=== PATIENT | female | born 1985 | race Caucasian/White ===

== ENCOUNTER 2021-01-09 19:44 | Inpatient (IN) | payer SELFPAY ==
[2021-01-09] MEDS ORDERED: Ondansetron PF 4 MG/2 ML Vial IVP PRN (23:40)
[2021-01-09] MEDS ORDERED: Acetaminophen 325 MG TAB PO PRN (23:40)
[2021-01-10 00:38] LABS: Cardiac Risk 4.4 (Less than 4.5)
[2021-01-10 00:43] VITALS: BMI 29.7
[2021-01-10] MEDS: Sodium Chloride 0.9% 1,000 ML IV SCH ×2 (01:14→05:20)
[2021-01-10] MEDS: Morphine 4 MG/ML VIAL SLOW IVP PRN ×2 (01:15→05:15)
[2021-01-10 02:37] LABS: Bacteria/HPF None Seen HPF (None Seen); Bilirubin Negative (Negative); Blood, Urine Negative (Negative); Clarity Clear (Clear); Glucose, Urine (Dipstick) Normal (Negative); Ketone, Urine Negative (Negative); Leukocyte 25 Leu/uL (Negative); Nitrite Negative (Negative); Protein, Urine (Dipstick) 30 mg/dL (Neg-Trace); Squamous Epithelial 21-50 HPF (0-3); pH, Urine 6.5 (5.0-9.0)
[2021-01-10 02:53] LABS: Specific Gravity, Urine Greater than 1.060 (1.002-1.036)
[2021-01-10 02:54] LABS: Urine Culture Reflex No No
[2021-01-10 06:38] LABS: #Eosinphils 0.2 thou/uL (0.0-0.7); #Lymphocytes 2.6 thou/uL (1.20-3.40); #Monocytes 0.6 thou/uL (0.11-0.59); #Neutrophils 4.2 thou/uL (1.40-6.50); %Basophils 0.6 % (0.0-1.0); %Eosinophils 2.1 % (0.0-10.0); %Lymphocytes 34.4 % (21.0-51.0); %Monocytes 8.1 % (0.0-10.0); %Neutrophils 54.8 % (42.0-75.0); Hemoglobin 11.8 g/dL (12.0-16.0); Mean Corpuscular HGB CONC 33.2 g/dL (32.0-36.0); Mean Corpuscular Hemoglobin 31.2 pg (27.0-31.0); Mean Corpuscular Volume 93.9 fL (78.0-98.0); Mean Platelet Volume 8.1 fL (7.4-10.4); Platelet Count 280 thou/uL (130-400); RBC Distribution Width 11.4 % (11.5-14.5); White Blood Cell (WBC) Count 7.6 thou/uL (4.8-10.8)
[2021-01-10 08:30] LABS: ALT (SGPT) 281 U/L (8-55); AST (SGOT) 205 U/L (5-34); Albumin 3.3 g/dL (3.5-5.0); Alkaline Phosphatase 116 U/L (40-110); Bilirubin, Direct 0.3 mg/dL (0.1-0.3); Bilirubin, Total 0.6 mg/dL (0.2-1.2); Protein, Total 5.6 g/dL (6.0-8.3)
[2021-01-10 09:05] LABS: ALT (SGPT) 279 U/L (8-55); AST (SGOT) 206 U/L (5-34); Albumin 3.3 g/dL (3.5-5.0); Alkaline Phosphatase 114 U/L (40-110); Anion Gap 11 mmol/L (10-20); BUN (Urea Nitrogen) 7 mg/dL (7.0-18.7); Bilirubin, Total 0.6 mg/dL (0.2-1.2); Calc. Creatinine Clearance 144 mL/min (70-130); Calcium 8.1 mg/dL (7.8-10.44); Carbon Dioxide 22 mmol/L (22-29); Chloride 108 mmol/L (98-107); Globulin 2.3 g/dL (2.4-3.5); Glucose 80 mg/dL (70-105); Potassium 3.2 mmol/L (3.5-5.1); Protein, Total 5.6 g/dL (6.0-8.3); Sodium 138 mmol/L (136-145)
[2021-01-10] MEDS ORDERED: Ondansetron ODT 8 MG TAB SL PRN (09:37)
[2021-01-10] MEDS ORDERED: Ondansetron ORAL SOLN. 4 MG/5 ML UDCUP PO PRN (09:37)
[2021-01-10] MEDS ORDERED: Sodium Chloride 0.9% 1,000 ML IV SCH (09:43)
[2021-01-10] MEDS ORDERED: Ondansetron PF 4 MG/2 ML Vial SLOW IVP SCH (09:45)
[2021-01-10] MEDS ORDERED: Ketorolac Tromethamine 30 MG/ML VIAL IVP SCH (09:45)
[2021-01-10] MEDS ORDERED: Ibuprofen 600 MG TAB PO PRN (11:00)
[2021-01-10] MEDS ORDERED: traMADol HCl 50 MG TAB PO PRN (11:00)
[2021-01-10] MEDS ORDERED: Acetaminophen 500 MG TAB PO PRN (11:00)
[2021-01-10] MEDS ORDERED: Scopolamine 1.5 mg/72 hour Patch ONE (11:12)
[2021-01-10] MEDS ORDERED: Levofloxacin 500 mg/D5W 100 ml Premix Bag ONE (11:12)
[2021-01-10] MEDS ORDERED: Ketorolac Tromethamine 30 MG/ML VIAL ONE ×2 (11:12→12:16)
[2021-01-10] MEDS ORDERED: Ondansetron PF 4 MG/2 ML Vial ONE ×2 (11:12→12:16)
[2021-01-10] MEDS ORDERED: Lidocaine 1% w/Epinephrine 1:100K 20 ML VIAL ONE (11:59)
[2021-01-10] MEDS ORDERED: Bupivacaine 0.25% HCL 30 ML VIAL ONE (11:59)
[2021-01-10] MEDS ORDERED: Iothalamate Meglumine 60% 50 ML VIAL FS ONE ×3 (11:59→13:03)
[2021-01-10] MEDS ORDERED: Scopolamine 1.5 mg/72 hour Patch TD SCH (12:00)
[2021-01-10] MEDS ORDERED: EPINEPHrine 1 MG/ML AMP ONE (12:04)
[2021-01-10] MEDS ORDERED: Bupivacaine PF 0.5% 30 ML VIAL ONE (12:04)
[2021-01-10] MEDS ORDERED: Midazolam HCl 2 mg/2 ml Vial ONE (12:13)
[2021-01-10] MEDS ORDERED: Lidocaine 2% Jelly 5 ML TUBE ONE (12:13)
[2021-01-10] MEDS ORDERED: Fentanyl 100 MCG/2 ML VIAL ONE ×2 (12:13→14:12)
[2021-01-10] MEDS ORDERED: HYDROmorphone 0.5 MG/0.5 ML SYRINGE ONE (12:13)
[2021-01-10] MEDS ORDERED: Lidocaine 1% PF 5 ML VIAL ONE (12:16)
[2021-01-10] MEDS ORDERED: PROPOFOL 200 MG/20 ML VIAL ONE (12:16)
[2021-01-10] MEDS ORDERED: Glycopyrrolate 0.2 MG/ML 5 ML SYRINGE ONE (12:16)
[2021-01-10] MEDS ORDERED: Dexamethasone 20 MG/5 ML VIAL ONE (12:16)
[2021-01-10] MEDS ORDERED: Rocuronium Bromide 10 MG/ML (10ML VIAL) ONE ×2 (12:16)
[2021-01-10] MEDS ORDERED: Indomethacin 50 MG SUPP ONE (13:03)
[2021-01-10] MEDS ORDERED: SUGAMMADEX SODIUM 200 MG/2 ML VIAL ONE (13:46)
[2021-01-10] MEDS ORDERED: Promethazine HCl 25 MG/ML VIAL IM PRN (14:11)
[2021-01-10] MEDS ORDERED: Promethazine HCl 25 MG/ML VIAL ONE (14:11)
[2021-01-10] MEDS ORDERED: Ondansetron HCl/PF 4 MG/2 ML Vial IVP PRN (14:11)
[2021-01-10] MEDS ORDERED: PACU-Morphine 4MG/ML VIAL SLOW IVP PRN (14:11)
[2021-01-10] MEDS ORDERED: Promethazine HCl 25 MG/ML VIAL IVPB PRN (14:11)
[2021-01-10] MEDS: Potassium Chloride 20 MEQ in Lactated Ringer's 1,000 ML IV SCH ×2 (15:27→23:50)
[2021-01-10] MEDS: Ketorolac Tromethamine 30 MG/ML VIAL IVP PRN (19:21)
[2021-01-10] MEDS ORDERED: Enoxaparin Sodium 40 MG/0.4 ML SYRINGE SC SCH (21:00)
[2021-01-11] MEDS: Ketorolac Tromethamine 30 MG/ML VIAL IVP PRN ×2 (01:05→12:20)
[2021-01-11 06:28] LABS: #Basophils 0.1 thou/uL (0.0-0.2); #Lymphocytes 1.9 thou/uL (1.20-3.40); #Monocytes 0.6 thou/uL (0.11-0.59); #Neutrophils 9.8 thou/uL (1.40-6.50); %Basophils 0.7 % (0.0-1.0); %Eosinophils 0.1 % (0.0-10.0); %Lymphocytes 15.2 % (21.0-51.0); %Monocytes 4.5 % (0.0-10.0); %Neutrophils 79.6 % (42.0-75.0); Hemoglobin 11.6 g/dL (12.0-16.0); Mean Corpuscular Hemoglobin 30.9 pg (27.0-31.0); Mean Corpuscular Volume 93.6 fL (78.0-98.0); Mean Platelet Volume 8.7 fL (7.4-10.4); Platelet Count 284 thou/uL (130-400); RBC Distribution Width 11.3 % (11.5-14.5); Red Blood Cell (RBC) Count 3.76 mill/uL (4.20-5.40); White Blood Cell (WBC) Count 12.3 thou/uL (4.8-10.8)
[2021-01-11 06:49] LABS: ALT (SGPT) 233 U/L (8-55); AST (SGOT) 116 U/L (5-34); Albumin 3.3 g/dL (3.5-5.0); Alkaline Phosphatase 127 U/L (40-110); Anion Gap 13 mmol/L (10-20); BUN (Urea Nitrogen) 8 mg/dL (7.0-18.7); Bilirubin, Total 0.5 mg/dL (0.2-1.2); Calc. Creatinine Clearance 150 mL/min (70-130); Calcium 8.7 mg/dL (7.8-10.44); Carbon Dioxide 21 mmol/L (22-29); Chloride 107 mmol/L (98-107); Globulin 2.5 g/dL (2.4-3.5); Glucose 85 mg/dL (70-105); Lipase 48 U/L (8-78); Potassium 4.3 mmol/L (3.5-5.1); Protein, Total 5.8 g/dL (6.0-8.3); Sodium 137 mmol/L (136-145)
[2021-01-11] MEDS: Potassium Chloride 20 MEQ in Lactated Ringer's 1,000 ML IV SCH (08:54)
[2021-01-11 12:49] VITALS: BP 132/82; TEMP 98.2
== END 2021-01-11 12:51 | disposition home or self-care (01) | DRG 417 ==
LOC: SJJU 19:44 → T4-A 01-10 00:16
PROVIDERS: ADMIT Internal Medicine; ATTEND Internal Medicine
PROC: 0FT44ZZ Resection of Gallbladder, Percutaneous Endoscopic Approach (ICD-10-PCS; principal; 2021-01-10)
PROC: BF141ZZ Fluoroscopy of Gallbladder, Bile Ducts and Pancreatic Ducts using Low Osmolar Contrast (ICD-10-PCS; 2021-01-10)
PROC: 0FC98ZZ Extirpation of Matter from Common Bile Duct, Via Natural or Artificial Opening Endoscopic (ICD-10-PCS; 2021-01-10)
PROC: BF101ZZ Fluoroscopy of Bile Ducts using Low Osmolar Contrast (ICD-10-PCS; 2021-01-10)
DX: K80.64 Calculus of gallbladder and bile duct with chronic cholecystitis without obstruction (principal); K85.10 Biliary acute pancreatitis without necrosis or infection; N39.0 Urinary tract infection, site not specified; Z20.822 Contact with and (suspected) exposure to COVID-19; I10 Essential (primary) hypertension; D64.9 Anemia, unspecified; F17.210 Nicotine dependence, cigarettes, uncomplicated; E87.6 Hypokalemia; Z86.16 Personal history of COVID-19; Z88.1 Allergy status to other antibiotic agents; Z88.0 Allergy status to penicillin; Z98.51 Tubal ligation status
CPT/HCPCS: 36415; 47532; 76000; 76705; 80053; 80061; 80076; 81001; 83690; 85007; 85025; 85027; 88304; C1713; J0171; J1100; J1170; J1610; J1650; J1885; J1956; J2250; J2270; J2405; J2550; J2704; J3010; J3480; J7050; J7120; Q9961-U8; S0020